=== PATIENT | male | born 1970 | race Caucasian/White ===

== ENCOUNTER 2022-10-18 14:52 | Emergency (ER) | payer OTHER, SELFPAY ==
[2022-10-18] VITALS (12 sets, daily range): BP systolic 197–253; BP diastolic 106–143; PULSE 69–98; RESP 16–22; TEMP 35.9; O2SAT 96–98; BMI 35.4
--- NOTE | 2022-10-18 17:11 | EKG12_ITS ---
Test Reason : HYPERTENSION Blood Pressure : / mmHG Vent. Rate : 085 BPM Atrial Rate : 085 BPM P-R Int : 154 ms QRS Dur : 096 ms QT Int : 404 ms P-R-T Axes : 043 -17 085 degrees QTc Int : 480 ms Normal sinus rhythm Abnormal ECG Confirmed by ROLAN GUZMAN, BEN ([id number]), publication editor MADDY RUSH ([id number]) on 10/20/2022 12:43:50 PM Referred By: KOSTAS Confirmed By:BEN GONGORA MD
--- NOTE | 2022-10-18 17:12 | EX.ED.DYSGE1 ---
HPI History of Present Illness Chief Complaint: Hypertension Narrative Narrative: 52-year-old male presenting for evaluation of elevated blood pressure. He states that he was at the [facility] earlier today and was told his blood pressure was 260/110. Patient states he notes a couple of years ago he was told he had elevated blood pressure. He states [facility] and his blood pressure was in the normal range then. He states he recently was diagnosed with COVID and has been sick since Thursday. He is not complaining of chest pain or shortness of breath. He states he is recovering. He does not have a headache, visual changes, nausea, vomiting. He does not have a headache.He states he does not have a primary care physician. [facility] Medical History COVID Home Medications amlodipine 10 mg tablet 10 mg PO DAILY #30 tabs 10/18/22 [Rx Last Taken Unknown] lisinopril 20 mg tablet 20 mg PO DAILY #30 tabs 10/18/22 [Rx Last Taken Unknown] Allergy/AdvReac Type Severity Reaction Status Date / Time No Known Allergies Allergy Verified 10/18/22 14:55 Social History Smoking Status: Former smoker ROS ROS ED Constitutional Constitutional ED: Denies chills or fever(s) Eyes Eyes: Denies change in vision or diplopia ENT ENT ED: Denies rhinorrhea or sore throat Cardiovascular Cardiovascular: Denies chest pain or palpitations Respiratory/Chest Respiratory/Chest: Reports cough; Denies dyspnea Gastrointestinal Gastrointestinal: Denies nausea or vomiting Genitourinary Genitourinary ED: Denies dysuria or hematuria Musculoskeletal Musculoskeletal: Denies arthralgias Integumentary Denies abscess or Abrasions Neurologic Neurologic: Denies headache(s) or paresthesias Psychiatric Psychiatric: Denies anxiety or depression EXAM Physical Exam Const Vital Signs: 10/18/22 14:52 10/18/22 16:46 10/18/22 16:54 Temperature 96.6 F L Temperature Source Temporal Pulse Rate 98 77 Respiratory Rate 18 22 H Respiratory Effort Normal Respiratory Pattern Normal Blood Pressure 230/143 H 253/126 H Blood Pressure Mean 172 168 Pulse Ox 98 97 Oxygen Delivery Method Room Air Room Air 10/18/22 17:23 10/18/22 17:24 10/18/22 17:41 Temperature Temperature Source Pulse Rate 72 69 Respiratory Rate 18 17 Respiratory Effort Respiratory Pattern Blood Pressure 219/121 H 200/118 H Blood Pressure Mean 153 145 Pulse Ox 96 96 96 Oxygen Delivery Method Room Air Room Air Room Air 10/18/22 18:54 10/18/22 19:01 10/18/22 20:02 Temperature Temperature Source Pulse Rate 71 73 79 Respiratory Rate 18 16 Respiratory Effort Respiratory Pattern Blood Pressure 197/127 H 206/112 H 207/106 H Blood Pressure Mean 150 143 139 Pulse Ox 97 97 Oxygen Delivery Method Room Air Room Air 10/18/22 20:36 10/18/22 20:45 10/18/22 20:58 Temperature Temperature Source Pulse Rate 76 85 76 Respiratory Rate 18 16 Respiratory Effort Respiratory Pattern Blood Pressure 220/110 H 209/119 H 198/119 H Blood Pressure Mean 146 149 145 Pulse Ox 97 98 Oxygen Delivery Method Room Air Room Air Positive well nourished General Appearance ED: NAD; Negative for pallor HEENT Reports moist mucous membranes Negative for trauma Eyes PERRL and EOMs intact bilaterally Neck no lymphadenopathy Chest Wall inspection of chest normal and palpation of chest normal Resp normal respiratory effort and clear to auscultation bilaterally Auscultation: Negative for rales, rhonchi or wheezes Cardio regular rate and regular rhythm GI normal to inspection, nondistended, normoactive bowel sounds Extremity General Extremety ED: Negative for edema or tenderness General Extremity: Negative for edema Neuro oriented x3 and CN's II-XII intact bilaterally Sensorium / Orientation: alert Motor Exam: strength 5/5 throughout Psych mental status grossly normal Skin no rashes or lesions noted and no wounds General Skin Exam: Negative for jaundice or pallor MDM MDM MDM Narrative Medical decision making narrative: Patient with significant elevation of his blood pressure. Here he is 253/126. He is never been on anything for blood pressure in the past. He does relate this might be a couple of years old. He does not follow-up with a regular doctor and states is unaware of any medical problems. He is denying headache or visual changes. He has no neurologic signs or symptoms. Recently ill with COVID but he states he is recovering. I will obtain baseline blood work to rule out endorgan damage since he does not have a primary care physician. I will need to obtain follow-up as well if his blood work is normal. Give patient given a dose of labetalol 20 mg IV. EKG was obtained and on my interpretation there is a normal sinus rhythm with a ventricular rate of 85 bpm. UT intervals 144 ms, QRS duration 96 ms, QTC 400 ms. CBC, BMP unremarkable with exception of a potassium of 3.3. LFTs are normal. High-sensitivity troponin is 30. Chest x-ray on my interpretation shows no acute cardiopulmonary process and radiologist interprets this and agrees. Patient will be given follow-up with Dr. Cardenas because he is up for no doc. I did speak with him and he recommends starting lisinopril 20 mg and amlodipine 10 mg. He will be given the first dose in the ED. His blood pressure is currently 198/119 but he is asymptomatic. Patient amenable to this plan. Impression: 1. Hypertension 2. History of COVID-19 Lab Data Attestation: I reviewed the patient's lab results. Labs: Laboratory Results - last 24 hr 10/18/22 10/18/22 15:15 15:15 WBC 5.5 RBC 4.52 L Hgb 14.4 Hct 42.9 MCV 94.9 H MCH 31.9 MCHC 33.6 RDW Std Deviation 43.0 RDW Coeff of Hollie 12.4 Plt Count 201 MPV 10.1 Immature Gran % (Auto) 0.500 Neut % (Auto) 50.9 Lymph % (Auto) 27.5 [place] % (Auto) 12.7 H Eos % (Auto) 8.0 H Baso % (Auto) 0.4 Absolute Neuts (auto) 2.8 Absolute Lymphs (auto) 1.52 Nucleated RBC % 0 Sodium 139 Potassium 3.3 L Chloride 104 Carbon Dioxide 27.0 Anion Gap 8 BUN 17 Creatinine 1.00 Estim Creat Clear Calc 85.43 Est GFR (MDRD) Af Amer 101 Est GFR (MDRD) Non-Af 83 BUN/Creatinine Ratio 17.1 Glucose 119 H Calcium 9.4 Total Bilirubin 0.40 Direct Bilirubin 0.08 AST 27 ALT 35 Alkaline Phosphatase 54 Troponin I High Sens 30 Total Protein 7.5 Albumin 3.5 Globulin 4.0 Radiography Diagnostic Testing: Clinical Impression(s) from Imaging Studies Chest X-Ray 10/18/22 17:25 IMPRESSION: No radiographic evidence of acute cardiopulmonary disease. Electronically Signed: García Smaayoa MD at 18:02 EST , Discharge Plan Triage Chief Complaint: Hypertension ED Provider: Jr Lizarraga Dx/Rx/DC Orders Instructions: ED Hypertension New Begin Treatment Prescriptions: New amlodipine 10 mg tablet 10 mg PO DAILY Qty: 30 0RF lisinopril 20 mg tablet 20 mg PO DAILY Qty: 30 0RF Primary Care Provider: Care Physician,No Primary Referrals: Miguel Cardenas MD [Med Staff - [employer]] - As soon as possible Care Physician,No Primary [Primary Care Provider] - Disposition Disposition: Home, Self Care
[2022-10-18] MEDS: Labetalol (Prefilled) 20 MG/4 ML IV ×2 (17:19→20:53)
[2022-10-18 17:21] LABS: Absolute Lymphocyte Count 1.52 X10^3/uL (0.83-4.51); Absolute Neutrophil Count 2.8 X10^3/uL (2.0-7.7); Basophil# 0.02 X10^3/uL; Basophil% 0.4 % (0-1); Eosinophil# 0.44 X10^3/uL; Hematocrit 42.9 % (40-54); Hemoglobin 14.4 g/dL (13.0-16.5); Lymphocyte # 1.52 X10^3/ul (0.83-4.51); Lymphocyte % 27.5 % (19-41); Mean Corp Hgb Conc 33.6 g/dL (32-36); Mean Corpuscular Hgb 31.9 pg (27.0-32.0); Mean Corpuscular Volume 94.9 fL (80-94); Mean Platelet Vol. 10.1 fl (6.2-12.0); Monocyte% 12.7 % (0-10); NRBC Flagged by Analyzer 0 % (0-5); Neutrophil # 2.81 X10^3/uL (2.7-7.7); Neutrophil % 50.9 % (47-70); Platelet Count 201 K/mm3 (150-450); RBC Distribution Width CV 12.4 % (11.6-14.6); Red Blood Count 4.52 M/mm3 (4.6-6.2); White Blood Count 5.5 K/mm3 (4.4-11.0)
--- NOTE | 2022-10-18 17:25 | RAD_ITS ---
INDICATION: chest pain EXAMINATION/TECHNIQUE: X-RAY - portable upright AP chest x-ray COMPARISON: None. FINDINGS: LINES/DEVICES: None. LUNGS: No consolidation, edema or effusion. No pneumothorax. MEDIASTINUM AND CARDIOVASCULAR STRUCTURES: Cardiac silhouette not enlarged. Central airways and mediastinal contour are unremarkable. BONES AND SOFT TISSUES: Unremarkable. RAD/Chest 1 View (Portable) IMPRESSION: No radiographic evidence of acute cardiopulmonary disease. Electronically Signed: García Samayoa MD at 18:02 EST ,
[2022-10-18 17:45] LABS: AST(SGOT) 27 U/L (15-37); Alanine Aminotransfer ALT/SGPT 35 U/L (16-61); Albumin, Serum 3.5 g/dL (3.2-5.0); Alkaline Phosphatase 54 U/L (45-117); Anion Gap 8 (5-15); BUN 17 mg/dL (7-18); BUN/Creat Ratio 17.1 RATIO (10-20); Bilirubin, Direct 0.08 mg/dL (0.00-0.30); Calcium,Total 9.4 mg/dL (8.5-10.1); Chloride 104 mmol/L (98-107); EST Glomerular Filtration Rate 83 mL/min (>60); Est Glom Filt Rate - Afr Amer 101 mL/min (>60); Estimated Creatinine Clearance 85.43 ml/min; Glucose 119 mg/dL (74-106); Potassium 3.3 mmol/L (3.5-5.1); Protein, Total 7.5 g/dL (6.4-8.2); Sodium Level 139 mmol/L (136-145); Troponin-I HS 30 pg/mL (3.0-78.0)
[2022-10-18] MEDS: hydrALAZINE 20 MG/ML Vial 5 MG IV ×2 (18:13→19:15)
[2022-10-18] MEDS: amLODIPine 10 MG Tablet PO (21:26)
[2022-10-18] MEDS: Lisinopril 20 MG Tablet PO (21:26)
== END 2022-10-18 21:33 | disposition home or self-care (01) ==
PROVIDERS: Emergency Provider Student in an Organized Health Care Education/Training Program; Visit Provider Student in an Organized Health Care Education/Training Program
DX: I10 Essential (primary) hypertension (principal); Z87.891 Personal history of nicotine dependence; Z86.16 Personal history of COVID-19
CPT/HCPCS: 71045; 80048; 80076; 84484; 85025; 93005; 96374; 96375; 96376; 99282; A4216